=== PATIENT | female | born 1980 | race Caucasian/White ===

== ENCOUNTER 2017-02-11 19:52 | Emergency (ER) | payer BC, OTHER ==
[2017-02-11 20:18] VITALS: BMI 26.6
--- NOTE | 2017-02-11 22:11 | PDOC ---
History of Present Illness - General Chief Complaint: Pain Stated Complaint: ABD PAIN Time Seen by Provider: 02/11/17 21:54 - History of Present Illness Initial Comments: 02/11/17 22:09 CHIEF COMPLAINT: abd pain HISTORY OF PRESENT ILLNESS: 36 yo F with hx of pre DM presents to ED with intermittent b/l lower abdominal pain x "a few days ago." Patient denies any nausea, vomiting, diarrhea, rectal bleeding. LMP 02/03/17. Patient describes the pain as a "pressure" and states that it is 3/10 but worse with movement. Denies any dysuria, frequency, hematuria. Patient reports that she thinks she had chlamydia "like 5 years ago." No recent travel or sick contacts. PAST MEDICAL HISTORY: Denies past medical history FAMILY HISTORY: Denies SOCIAL HISTORY: Denies tobacco, alcohol, illicit drug use. SURGICAL HISTORY: Denies ALLERGIES: No known drug allergies REVIEW OF SYSTEMS General/Constitutional: Denies fever or chills. Denies weakness. HEENT: Denies change in vision. Denies ear pain or discharge. Denies sore throat. Cardiovascular: Denies chest pain or shortness of breath. Respiratory: Denies cough, wheezing, or hemoptysis. Gastrointestinal: B/l lower abdominal pain. Denies nausea, vomiting, diarrhea or constipation. Denies rectal bleeding. Genitourinary: Denies vaginal bleeding. Denies dysuria, frequency, or change in urination. Musculoskeletal: Denies joint or muscle swelling or pain. Denies neck or back pain. Skin: Denies rash or easy bruising. Neurologic: Denies headache, vertigo, loss of consciousness, or loss of sensation. PHYSICAL EXAM General Appearance: Well-appearing, appropriately dressed. No apparent distress. HEENT: EOMI, PERRLA, normal ENT inspection, normal voice, TMs normal, pharynx normal. No conjunctival pallor. No photophobia, scleral icterus. Respiratory/Chest: Lungs CTAB. Cardiovascular: RRR. S1, S2. Gastrointestinal/Abdominal: RLQ and LLQ tenderness vs adnexal tenderness b/l. No organomegaly, pulsatile mass, guarding, hernia, hepatomegaly, splenomegaly. Pelvic: External genitalia normal without lesions. Vaginal vault is clear without blood or discharge. Cervix is long and closed. +CMT. Uterus is nontender and normal in size. B/l adnexal tenderness. Musculoskeletal/Extremities: Normal inspection. FROM of all extremities, normal capillary refill. Pelvis Stable. No CVA tenderness. No tenderness to extremities, pedal edema, swelling, erythema or deformity. Integumentary: Appropriate color, dry, warm. No cyanosis, erythema, jaundice or rash Neurologic: trolley cleaner II-XII intact. Fully oriented, alert. Appropriate mood/affect. Motor strength 5/5. No appreciable EOM palsy, facial droop or sensory deficit. Past History - Past Medical History Allergies/Adverse Reactions: Allergies Allergy/AdvReac Type Severity Reaction Status Date / Time No Known Allergies Allergy Verified 02/11/17 20:15 Home Medications: Ambulatory Orders Metformin HCl 1,000 mg PO BID 02/11/17 Other medical history: Pt denies - Immunization History Immunization Up to Date: Yes - Suicide/Smoking/Psychosocial Hx Smoking History: Never smoked Have you smoked in the past 12 months: No Information on smoking cessation initiated: No Hx Alcohol Use: No Drug/Substance Use Hx: No Substance Use Type: None *Physical Exam - Vital Signs Last Vital Signs Temp Pulse Resp BP Pulse Ox 98.5 F 75 18 111/73 99 02/11/17 20:16 02/11/17 20:16 02/11/17 20:16 02/11/17 20:16 02/11/17 20:16 ED Treatment Course - LABORATORY CBC & Chemistry Diagram: 02/12/17 01:23 Medical Decision Making - Medical Decision Making 02/11/17 23:01 36 yo F with hx of pre DM presents to ED with intermittent b/l lower abdominal pain x "a few days ago." -UA, UCx, Urine preg -TV U/S 02/12/17 01:33 Ultrasound results: Uterus is normal. Endometrial complex is normal and homogeneous of 6.6 mm. Nabothian cyst noted. Some fluid in the endocervical canal. Normal right ovary with positive Doppler blood flow. Normal left ovary with dominant follicle measuring 1.9 cm. There is positive Doppler blood flow to the left ovary. CT results: FINDINGS:Lung bases are clear. The visualized cardiac chambers are normal size and configuration. There is a tiny nonobstructing left renal stone. Normal unenhanced liver, gallbladder, pancreas, spleen, adrenal glands and right kidney. The stomach and abdominal small and large bowel are normal. There is no aortic aneurysm. There is no significant retroperitoneal lymphadenopathy. Distal liquid stool without colonic wall thickening may indicate a diarrheal illness.. The appendix is normal. The uterus and adnexal structures are normal. Urinary bladder is unremarkable. There is no pelvic free fluid. No discrete pelvic lymphadenopathy is identified. IMPRESSION: Possible diarrheal illness without bowel wall thickening. No mass. Tiny nonobstructing left renal stone. Read by: Robert Jack MD Given patient's b/l adnexal tenderness and CMT, will treat for PID. -azithromycin po -ceftriaxone 250 mg IM Advised patient to f/u with OBGYN this week and of signs and symptoms for return to ER; patient verbalized understanding and agrees to plan. *DC/Admit/Observation/Transfer Diagnosis at time of Disposition: Acute infection of female upper reproductive tract - Discharge Dispostion Disposition: HOME Condition at time of disposition: Improved Admit: No - Referrals Referrals: Tuyet Villalobos MD [Primary Care Provider] - - Patient Instructions Printed Discharge Instructions: DI for Pelvic Inflammatory Disease Additional Instructions: As discussed, please follow up with your OBGYN this week for further evaluation. If you develop any worsening abdominal pain, fever, chills, vomiting, diarrhea, vaginal bleeding, or any new or worsening symptoms, please return to the ER. - Post Discharge Activity Forms/Work/School Notes: Back to Work
[2017-02-11 22:34] LABS: URINE APPEARANCE CLEAR; URINE BILIRUBIN NEGATIVE (NEGATIVE); URINE BLOOD NEGATIVE (NEGATIVE); URINE COLOR YELLOW; URINE GLUCOSE (UA) NEGATIVE (NEGATIVE); URINE KETONE NEGATIVE (NEGATIVE); URINE NITRITE NEGATIVE (NEGATIVE); URINE PROTEIN NEGATIVE (NEGATIVE); URINE UROBILINOGEN NEGATIVE mg/dL (0.2-1.0)
[2017-02-11] MEDS ORDERED: KETOROLAC TROMETHAMINE 60 MG/2 ML VIAL IM ONE (23:01)
--- NOTE | 2017-02-11 23:06 | PDOC ---
*Physical Exam - Vital Signs Last Vital Signs Temp Pulse Resp BP Pulse Ox 98.5 F 75 18 111/73 99 02/11/17 20:16 02/11/17 20:16 02/11/17 20:16 02/11/17 20:16 02/11/17 20:16 ED Treatment Course - LABORATORY CBC & Chemistry Diagram: 02/12/17 01:23 - ADDITIONAL ORDERS Additional order review: Laboratory Results 02/11/17 22:13 Urine Color Yellow Urine Appearance Clear Urine pH 5.0 Urine Protein Negative Urine Glucose (UA) Negative Urine Ketones Negative Urine Blood Negative Urine Nitrite Negative Urine Bilirubin Negative Urine Urobilinogen Negative Urine HCG, Qual Negative Medical Decision Making - Medical Decision Making 02/11/17 23:06 agree with care from BEATRICE Shukla *DC/Admit/Observation/Transfer Diagnosis at time of Disposition: PID (pelvic inflammatory disease) - Referrals Referrals: Tuyet Villalobos MD [Primary Care Provider] - - Patient Instructions Printed Discharge Instructions: DI for Pelvic Inflammatory Disease Additional Instructions: As discussed, please follow up with your OBGYN this week for further evaluation. If you develop any worsening abdominal pain, fever, chills, vomiting, diarrhea, vaginal bleeding, or any new or worsening symptoms, please return to the ER. - Post Discharge Activity Forms/Work/School Notes: Back to Work
[2017-02-12] MEDS ORDERED: KETOROLAC TROMETHAMINE 60 MG/2 ML VIAL ONE (00:27)
[2017-02-12 01:28] LABS: BASOPHIL 1.2 % (0-2.0); EOSINOPHIL 6.6 % (0-4.5); MCH 29.4 pg (25.7-33.7); MCHC 33.7 g/dl (32.0-36.0); MEAN PLT VOLUME 8.4 fl (7.5-11.1); NEUTROPHILS 52.8 % (42.8-82.8); PLATELET COUNT 241 K/MM3 (134-434); RDW 15.6 % (11.6-15.6); WHITE BLOOD COUNT 6.2 K/mm3 (4.0-10.0)
[2017-02-12] MEDS ORDERED: AZITHROMYCIN 500 MG TABLET PO ONE (02:28)
[2017-02-12] MEDS ORDERED: AZITHROMYCIN 500 MG TABLET ONE (02:44)
[2017-02-12] MEDS ORDERED: cefTRIAXone SODIUM 1 GM VIAL IM ONE (02:45)
[2017-02-12 03:12] VITALS: BP 98/71; PULSE 69; TEMP 97.7
[2017-02-12 11:19] LABS: URINE LEUK ESTERASE Negative (NEGATIVE)
== END 2017-02-12 03:12 | disposition home or self-care (01) ==
LOC: JER 19:52
PROC: 3E0233Z Introduction of Anti-inflammatory into Muscle, Percutaneous Approach (ICD-10-PCS; principal; 2017-02-11)
PROC: 3E02329 Introduction of Other Anti-infective into Muscle, Percutaneous Approach (ICD-10-PCS; 2017-02-11)
DX: N73.8 Other specified female pelvic inflammatory diseases (principal)
CPT/HCPCS: 36415; 74176-TC; 76830-TC; 81003; 83690; 84703; 85025; 87086; 87491; 87591; 99282-25

== ENCOUNTER 2018-07-13 19:57 | Emergency (ER) | payer BC ==
--- NOTE | 2018-07-13 20:40 | PDOC ---
Rapid Medical Evaluation Medical Evaluation: Allergies Allergy/AdvReac Type Severity Reaction Status Date / Time No Known Allergies Allergy Verified 02/11/17 20:15 I have performed a brief in-person evaluation of this patient. The patient presents with a chief complaint of: C/O frontal CHILEL x 4 hours, gradual in onset, along with NBNB emesis; denies trauma, prior history of headaches; CHILEL not worsened by anything in particular; took Tylenol without much relief Pertinent physical exam findings: In NAD, no focal deficits I have ordered the following: Tylenol, Reglan, IVF The patient will proceed to the ED for further evaluation. 07/13/18 20:40
[2018-07-13 20:43] VITALS: BP 119/74; PULSE 66; TEMP 98.2; BMI 26.5
[2018-07-13] MEDS ORDERED: METOCLOPRAMIDE HCL INJECTION 10 MG/2 ML VIAL IVPB ONE (20:43)
[2018-07-13] MEDS ORDERED: SODIUM CHLORIDE 1,000 ML IV STA (20:43)
[2018-07-13] MEDS ORDERED: ACETAMINOPHEN 1000 MG/100 ML VIAL (NON FORMULARY) IVPB ONE (20:43)
[2018-07-13] MEDS ORDERED: METOCLOPRAMIDE HCL INJECTION 10 MG/2 ML VIAL ONE (21:25)
[2018-07-13] MEDS ORDERED: ACETAMINOPHEN INJECTION 100 ML IVPB ONE (21:25)
--- NOTE | 2018-07-13 21:33 | PDOC ---
History of Present Illness - General Chief Complaint: Headache Stated Complaint: HEADACHE/VOMITING Time Seen by Provider: 07/13/18 20:40 - History of Present Illness Initial Comments: 07/13/18 21:31 38-year-old female with prediabetes, on metformin presents for evaluation of headache times one day. She states her headache has been gradual in onset getting worse over the day unrelieved with by mouth Tylenol at home. Associated with nausea vomiting and photo sensitivity no fever. Past History - Past Medical History Allergies/Adverse Reactions: Allergies Allergy/AdvReac Type Severity Reaction Status Date / Time No Known Allergies Allergy Verified 02/11/17 20:15 Home Medications: Ambulatory Orders Metformin HCl 1,000 mg PO BID 02/11/17 COPD: No CHF: No - Immunization History Immunization Up to Date: Yes - Suicide/Smoking/Psychosocial Hx Smoking History: Never smoked Have you smoked in the past 12 months: No Information on smoking cessation initiated: No Hx Alcohol Use: No Drug/Substance Use Hx: No Substance Use Type: None Review of Systems - Review of Systems Constitutional: No: Fever ABD/GI: Yes: Nausea, Vomiting Neurological: Yes: Headache *Physical Exam - Vital Signs Last Vital Signs Temp Pulse Resp BP Pulse Ox 98.2 F 66 16 119/74 100 07/13/18 20:41 07/13/18 20:41 07/13/18 20:41 07/13/18 20:41 07/13/18 20:41 - Physical Exam Comments: 07/13/18 21:32 HEAD: NC/AT EYES: Conjuntiva clear Ears: Canals and TM's normal NOSE: No d/c THROAT: Moist mucous membrances, oral pharanx clear, uvula midline NECK: Supple without adenopathy CARDIAC: S1 S2 LUNGS: CTA Full and Equal breath sounds ABDOMEN: Soft NT ND MS: Full ROM in all joints without edema NEUROLOGIC: No gross sensory or motor deficits, NVID SKIN: Normal color and temperature no lesions or rashes Moderate Sedation - Procedure Monitoring Vital Signs: Procedure Monitoring Vital Signs Temperature 98.2 F 07/13/18 20:41 Pulse Rate 66 07/13/18 20:41 Respiratory Rate 16 07/13/18 20:41 Blood Pressure 119/74 07/13/18 20:41 O2 Sat by Pulse Oximetry (%) 100 07/13/18 20:41 ED Treatment Course - ADDITIONAL ORDERS Additional order review: Laboratory Results 07/13/18 20:51 Urine HCG, Qual Negative - RADIOLOGY Radiology Studies Ordered: Category Date Time Status HEAD CT WITHOUT CONTRAST [CT] Stat CT Scan 07/13/18 21:26 Ordered Medical Decision Making - Medical Decision Making 07/13/18 22:15 CT normal, CHILEL resolved, will have pt f/u with neurology *DC/Admit/Observation/Transfer Diagnosis at time of Disposition: Headache - Discharge Dispostion Disposition: HOME Condition at time of disposition: Stable Decision to Admit order: No - Referrals Referrals: Raman Rai MD [Staff Physician] - - Patient Instructions Printed Discharge Instructions: DI for Headache Additional Instructions: Return to the emergency room for further treatment should symptoms return. Otherwise follow-up with neurology in 1-2 days for further evaluation and treatment options. Tylenol and Motrin as directed for headache. - Post Discharge Activity
== END 2018-07-13 22:54 | disposition home or self-care (01) ==
LOC: JERFT 19:57
PROC: 3E033GC Introduction of Other Therapeutic Substance into Peripheral Vein, Percutaneous Approach (ICD-10-PCS; principal; 2018-07-13)
PROC: 3E033GC Introduction of Other Therapeutic Substance into Peripheral Vein, Percutaneous Approach (ICD-10-PCS; 2018-07-13)
PROC: 3E033NZ Introduction of Analgesics, Hypnotics, Sedatives into Peripheral Vein, Percutaneous Approach (ICD-10-PCS; 2018-07-13)
DX: R51 Headache (principal); R73.03 Prediabetes; Z79.84 Long term (current) use of oral hypoglycemic drugs
CPT/HCPCS: 70450-TC; 84703; 99281-25; J0131; J7030